=== PATIENT | male | born 1955 | race Hispanic/Latino ===

== ENCOUNTER 2016-12-09 01:06 | Emergency (ER) | payer BC, OTHER ==
[2016-12-09] MEDS ORDERED: Lidocaine 2% Jelly (Uro-Jet) ONE (01:31)
--- NOTE | 2016-12-09 01:45 | C.PDOC ---
History Of Present Illness Pt is 6 days s/p turp. Last voided yesterday at 5 pm . small drops of blood passed. Suprapubic pressure. no f/c/n/v Time Seen by Provider: 12/09/16 01:42 Chief Complaint (Nursing): Male Genitourinary History Per: Patient History/Exam Limitations: no limitations Onset/Duration Of Symptoms: Hrs Current Symptoms Are (Timing): Worse Severity: Severe Pain Scale Rating Of: 8 Quality Of Discomfort: Pressure Associated Symptoms: denies: Fever, Chills, Nausea Alleviating Factors: None Recent travel outside of the [place]: No Additional History Per: Patient Past Medical History Reviewed: Historical Data, Nursing Documentation, Vital Signs Vital Signs: Last Vital Signs Temp 98.1 F 12/09/16 01:13 Pulse 73 12/09/16 01:13 Resp 18 12/09/16 01:13 BP 152/90 H 12/09/16 01:13 Pulse Ox 99 12/09/16 01:48 Family History: States: No Known Family Hx - Social History Hx Alcohol Use: No Hx Substance Use: No Review Of Systems Constitutional: Negative for: Fever, Chills Cardiovascular: Negative for: Chest Pain Respiratory: Negative for: Shortness of Breath Gastrointestinal: Positive for: Abdominal Pain. Negative for: Vomiting Genitourinary: Positive for: Hematuria, Other (urinary retention) Musculoskeletal: Negative for: Back Pain Skin: Negative for: Rash Neurological: Negative for: Weakness Psych: Negative for: Anxiety Physical Exam - Physical Exam Appears: In Acute Distress Skin: Warm, Dry Cardiovascular: Rhythm Regular Respiratory: No Rales, No Rhonchi, No Wheezing Gastrointestinal/Abdominal: Soft, Tenderness (suprapubic) Back: No CVA Tenderness Male Genital: No Testicular Tenderness, Circumcised Extremity: No Normal ROM Extremity: Bilateral: Atraumatic Neurological/Psych: Oriented x3, Normal Speech, Normal Cognition Gait: Steady ED Course And Treatment O2 Sat by Pulse Oximetry: 99 Pulse Ox Interpretation: Normal Progress Note: i've played a [address], without difficulty., Pt tolerated the procedure well. ABout 400 cc of bloody urine and clots drained. Pt with instant relief. Connected to [facility]bi Reevaluation Time: 03:09 Reassessment Condition: Improved Disposition Counseled Patient/Family Regarding: Studies Performed, Diagnosis, Need For Followup - Disposition Disposition: HOME/ ROUTINE Disposition Time: 01:43 Condition: FAIR Instructions: Urinary Retention in Men (ED), Barrios Catheter Placement and Care (ED), Acute Hematuria (DC), Urinary Leg Bag (GEN) Forms: [employer] (Nepali) - Clinical Impression Clinical Impression: Acute urinary retention, Hematuria
[2016-12-09 02:09] VITALS: RESP 18
[2016-12-09 03:44] VITALS: BP 128/74; PULSE 54; TEMP 97.8; O2SAT 98
== END 2016-12-09 03:45 | disposition home or self-care (01) ==
LOC: C.ER 01:06
DX: R33.9 Retention of urine, unspecified (principal); R31.9 Hematuria, unspecified